=== PATIENT | male | born 1995 | race Caucasian/White ===

== ENCOUNTER 2017-07-28 05:45 | Observation (INO) | END 2017-07-29 15:41 | disposition home or self-care (01) ==

== ENCOUNTER 2019-04-17 22:57 | Emergency (ER) | payer BC ==
[~2019-04-17] VITALS: Ht 193 cm; Wt 77.1 kg
[~2019-04-17 22:57] MED LIST: Bactrim Ds Tab1 EACH PO; CEPH500 PO; Hydrocodone-Ap1 EA20 PO
[2019-04-18] MEDS ORDERED: Crutch1 EACH MISC (00:06)
== END 2019-04-18 00:12 | disposition home or self-care (01) ==
LOC: ER 22:57
DX: S99.922A Unspecified injury of left foot, initial encounter (principal); Z88.0 Allergy status to penicillin; W50.0XXA Accidental hit or strike by another person, initial encounter
CPT/HCPCS: 29515; 73630; 99283-25

== ENCOUNTER 2023-12-19 16:31 | Emergency (ER) | payer OTHER ==
[~2023-12-19] VITALS: Ht 190.5 cm; Wt 77.1 kg
[~2023-12-19 16:31] MED LIST changes: +Crutch1 EACH MISC
[2023-12-19 17:16] VITALS: BP 113/68
[2023-12-19] MEDS ORDERED: Acetaminophen 500 MG Tab PO ONE (17:55)
[2023-12-19] MEDS ORDERED: Ibuprofen 400 MG Tab PO ONE (17:55)
[2023-12-19] MEDS ORDERED: Acetaminophen650 M1 PO (18:10)
[2023-12-19] MEDS ORDERED: IBUP200 PO (18:10)
== END 2023-12-19 18:25 | disposition home or self-care (01) ==
LOC: ER 16:31
DX: H92.01 Otalgia, right ear (principal); Z79.899 Other long term (current) drug therapy; Z88.0 Allergy status to penicillin
CPT/HCPCS: 99282; A9270

== ENCOUNTER 2025-01-08 06:43 | Emergency (ER) | payer OTHER ==
[~2025-01-08] VITALS: Ht 190.5 cm; Wt 72.6 kg
[~2025-01-08 06:43] MED LIST changes: +Acetaminophen650 M1 PO; +IBUP200 PO
== END 2025-01-08 06:59 | disposition left against medical advice (07) ==
LOC: ER 06:43
DX: F15.90 Other stimulant use, unspecified, uncomplicated (principal); M25.571 Pain in right ankle and joints of right foot; Z53.29 Procedure and treatment not carried out because of patient's decision for other reasons; Z88.0 Allergy status to penicillin; Z79.1 Long term (current) use of non-steroidal anti-inflammatories (NSAID); Z79.899 Other long term (current) drug therapy
CPT/HCPCS: 99283

== ENCOUNTER 2025-01-08 07:52 | Emergency (ER) | payer OTHER ==
[~2025-01-08] VITALS: Ht 185.4 cm; Wt 77.1 kg
[2025-01-08] MEDS ORDERED: LORazepam 2 MG/ML 1ML Injection IM ONE (07:55)
[2025-01-08 08:08] VITALS: BP 153/106
== END 2025-01-08 08:15 ==
LOC: ER 07:52
DX: Z02.89 Encounter for other administrative examinations (principal); F15.929 Other stimulant use, unspecified with intoxication, unspecified; Z88.0 Allergy status to penicillin; Z79.899 Other long term (current) drug therapy
CPT/HCPCS: 80053; 83690; 85025; 99283; J2060

== ENCOUNTER 2025-01-08 09:46 | Emergency (ER) | payer OTHER ==
[~2025-01-08] VITALS: Ht 190.5 cm; Wt 74.8 kg
[2025-01-08] MEDS ORDERED: LORazepam 2 MG/ML 1ML Injection IV ONE (10:10)
[2025-01-08 10:45] LABS: BASOPHILS ABSOLUTE AUTO 0.08 K/mm3 (0.00-0.23); BASOPHILS PERCENT AUTO 1 % (0-2); EOSINOPHILS ABSOLUTE AUTO 0.03 K/mm3 (0.00-0.68); EOSINOPHILS PERCENT AUTO 0 % (0-6); Hematocrit 36.7 % (37.0-53.0); Hemoglobin 12.9 g/dL (13.5-17.5); IMMATURE GRAN ABSOLUTE AUTO 0.02 K/mm3 (0.00-0.10); IMMATURE GRAN PERCENT AUTO 0 % (0-1); LYMPHOCYTES ABSOLUTE AUTO 2.41 K/mm3 (0.84-5.20); LYMPHOCYTES PERCENT AUTO 20 % (21-46); MONOCYTES ABSOLUTE AUTO 0.96 K/mm3 (0.16-1.47); MONOCYTES PERCENT AUTO 8 % (4-13); Mean Corpuscular HGB Conc 35.1 g/dL (31.5-36.5); Mean Corpuscular Volume 92 fL (80-100); NEUTROPHILS ABSOLUTE AUTO 8.34 K/mm3 (1.96-9.15); NEUTROPHILS PERCENT AUTO 70 % (41-73); NRBC ABSOLUTE 0.00 K/mm3 (0.00-0.02); NRBC Auto 0.0 /100 WBC (0.0-0.2); Platelet Count 388 K/mm3 (150-400); RDW Coefficient Variation 12.0 % (11.7-14.2); RDW Standard Deviation 41.1 fL (35.1-46.3)
[2025-01-08 11:09] LABS: Alanine Aminotransfer (ALT/SGP 33.0 U/L (12-78); Albumin, Blood 4.7 g/dL (3.4-5.0); Albumin/Globulin Ratio 1.5 (0.8-1.8); Anion Gap 6.0 mmol/L (3-11); Aspartate Aminotrans (AST/SGOT 28.0 U/L (12-37); Bilirubin, Total 0.8 mg/dL (0.1-1.0); Blood Urea Nitrogen 13.0 mg/dL (8-24); CO2, Blood 29.0 mmol/L (21-32); Calcium, Blood 9.5 mg/dL (8.5-10.1); Chloride, Blood 107.0 mmol/L (98-108); Creatinine, Blood 0.89 mg/dL (0.60-1.20); Globulin, Blood 3.2 g/dL (2.2-4.0); Glucose, Blood 91.0 mg/dL (70-99); Potassium, Blood 4.1 mmol/L (3.5-5.5); Sodium, Blood 138.0 mmol/L (136-145); Total Protein, Blood 7.9 g/dL (6.4-8.2)
== END 2025-01-08 11:45 | disposition left against medical advice (07) ==
LOC: ER 09:46
PROVIDERS: Emergency Medicine
DX: R10.9 Unspecified abdominal pain (principal); F15.10 Other stimulant abuse, uncomplicated; Z53.29 Procedure and treatment not carried out because of patient's decision for other reasons; Z88.0 Allergy status to penicillin; Z90.49 Acquired absence of other specified parts of digestive tract
CPT/HCPCS: 80053; 83690; 85025

== ENCOUNTER → 2025-01-11 | Outpatient (CLI) | payer OTHER | LOC: LAB 19:14 | DX: Z11.3 Encounter for screening for infections with a predominantly sexual mode of transmission (principal) ==

== ENCOUNTER → 2025-01-12 | Outpatient (CLI) | payer OTHER | LOC: LAB 08:30 | DX: Z11.3 Encounter for screening for infections with a predominantly sexual mode of transmission (principal) ==